=== PATIENT | male | born 1955 | race Caucasian/White ===

== ENCOUNTER → 2016-08-15 | Outpatient (CLI) | payer BC ==
[~2016-08-15] MED LIST: ASPIRIN; GLUCAPHAGE; NIACIN; OMEG10007; PLAVIX; TOPROL; ZOCOR; [UNRECOGNIZED DRUG - REMARK]
[2016-08-15 13:20] LABS: ALT/SGPT 46 U/L (12-78); AST/SGOT 26 U/L (15-37); BLOOD UREA NITROGEN 20 mg/dl (7-18); BUN/CREATININE RATIO 14.6 (10-20); CALCIUM 8.9 mg/dl (8.5-10.1); CARBON DIOXIDE 26 mmol/L (21-32); CHLORIDE 108 mmol/L (98-107); CHOLESTEROL 144 mg/dl (0-200); GLUCOSE 90 mg/dl (70-99); POTASSIUM 4.5 mmol/L (3.5-5.1); SODIUM 141 mmol/L (136-145)
[2016-08-15 13:23] LABS: CHOLESTEROL/HDL RATIO 3.8; HDL CHOLESTEROL 38 mg/dl; LDL CHOLESTEROL CALCULATED 58 mg/dl; TRIGLYCERIDES 240 mg/dl (0-150); VERY LOW DENSITY LIPOPROT CALC 48 mg/dl
[2016-08-15 13:31] LABS: ESTIMATED AVERAGE GLUCOSE 143 mg/dl; HA1C FLAG Normal (Normal)
== END | disposition home or self-care (01) ==
LOC: C.LABMFLN 08:25
PROVIDERS: ATTEND Family Medicine
DX: I10 Essential (primary) hypertension (principal); E78.00 Pure hypercholesterolemia, unspecified; E11.9 Type 2 diabetes mellitus without complications; I25.10 Atherosclerotic heart disease of native coronary artery without angina pectoris

== ENCOUNTER → 2017-08-25 | Day surgery (SDC) | payer OTHER ==
[2017-08-15 11:15] VITALS: Ht 179.1 cm; Wt 101.8 kg
[~2017-08-25] VITALS: Ht 179.1 cm; Wt 101.8 kg
[~2017-08-25] MED LIST changes: +ASPCH81X PO; -ASPIRIN; +ATOR-26 PO; +CANA1TAB3 PO; +DULA0.5I INJ; +FENO1TAB PO; -GLUCAPHAGE; +GLYB5TAB3 PO; +LIDOCAINE HCL 2% 2 ML VIAL (20MG/ML) ONE; +LISI40TA PO; +LORA10CA2 PO; +METO50TA16 PO; +MIDAZOLAM HCL 1 MG/ML 2ML VIAL ONE; -NIACIN; +NTRGSL/4 UT; -OMEG10007; +ONDANSETRON INJ 2 MG/ML 2 ML VIAL ONE; +PHENYLEPHRINE 100MCG/ML 5ML SYR ONE; -PLAVIX; +PROPOFOL IV EMULSION 10 MG/ML 20 ML VIAL IV ONE; +SILD1TAB39 PO; +SODIUM CHLORIDE 0.9% 500ML 500 ML IV ONE; +TADA5TAB11 PO; -TOPROL; +TRMO2580 TOP; +WARF5TAB90 PO; -ZOCOR; -[UNRECOGNIZED DRUG - REMARK]
[2017-08-25 14:11] VITALS: TEMP 36.9
--- NOTE | 2017-08-25 15:14 | Endo History and Physical ---
History & Physical Date of Service: Aug 25, 2017. Chief Complaint: Screening Referring Physician: Dr. Jurgen Villela History of Present Illness colon screening Past Surgical History Hx Cardiac Surgery: Yes (MULT. HEART CATHS (3 STENT PLACED)) Hx Internal Defibrillator: Yes Hx Pacemaker: Yes Hx Abdominal Surgery: No Hx of Implantable Prosthesis: No Hx Post-Op Nausea and Vomiting: No Hx Cancer Surgery: No Hx Thoracic Surgery: No Hx Orthopedic: Yes (RT/LEFT CTR) Hx Urinary Tract Surgery: No Family History None Social History Smoking Status: Never Smoker Hx Substance Use: No Hx Alcohol Use: Yes (OCCASIONALLY) Allergies Coded Allergies: No Known Allergies (Verified , 08/25/17) Current Medications Reported Home Medications Medications Dose Route/Sig Max Daily Dose Days Date Category Dose Instructions Coumadin (Warfarin Sodium) 5 Mg Tab 5 Mg PO DIRECTED 08/15/17 Reported TAKES 5MG MONDAY, MON, MONDAY AND SAT. TAKES 2.5MG ALL OTHER DAYS (3XWK) Trulicity (Dulaglutide) 1.5 Mg/0.5 Ml Inj 1 Dose INJ WK 08/15/17 Reported Nitrostat (Nitroglycerin) 0.4 Mg Tab 0.4 Mg UT PRN 08/15/17 Reported Lopressor (Metoprolol Tartrate) 50 Mg Tab 50 Mg PO BID 08/15/17 Reported Claritin (Loratadine) 10 Mg Cap 10 Mg PO QAM 08/15/17 Reported Zestril (Lisinopril) 40 Mg Tab 40 Mg PO QAM 08/15/17 Reported Invokana (Canagliflozin) 300 Mg Tab 1 Tab PO QAM 08/15/17 Reported Glucovance 5/500 Mg (Glyburide-Metformin) 1 Tab Tab 2 Tab PO BID 08/15/17 Reported Tricor (Fenofibrate) 160 Mg Tab 160 Mg PO QAM 08/15/17 Reported Lipitor (Atorvastatin Calcium) 80 Mg Tab 80 Mg PO HS 08/15/17 Reported Aspirin Chewable (Aspirin) 81 Mg Chew 81 Mg PO HS 08/15/17 Reported Vital Signs Weight (Kilograms): 101.82 Height (Feet): 5 Height (Inches): 10.5 Date Time Temp Pulse Resp B/P (MAP) Pulse Ox O2 Delivery O2 Flow Rate FiO2 08/25/17 14:11 36.9 81 20 169/86 (113) 98 Room Air Physical Exam General Appearance: WD/WN, no apparent distress Respiratory/Chest: Auscultation: breath sounds normal Cardiovascular: Heart Auscultation: RRR Abdomen: Bowel Sounds: normal Inspection & Palpation: soft, non-distended, no tenderness, guarding & rebound colon screening Assessment and Plan colon screening
--- NOTE | 2017-08-25 15:59 | Discharge Instructions ---
Endoscopy Patient Instructions Date / Procedure(s) Performed Aug 25, 2017. Colonoscopy Allergy Information Coded Allergies: No Known Allergies (Verified , 08/25/17) Discharge Date / Findings Aug 25, 2017. polyps Medication Instructions Stopped Medication(s): Patient did not take anything today. Restart Stopped Medication(s): Reported Home Medications Medications Dose Route/Sig Max Daily Dose Days Date Category Dose Instructions Coumadin (Warfarin Sodium) 5 Mg Tab 5 Mg PO DIRECTED 08/15/17 Reported TAKES 5MG MONDAY, MON, MONDAY AND SAT. TAKES 2.5MG ALL OTHER DAYS (3XWK) Trulicity (Dulaglutide) 1.5 Mg/0.5 Ml Inj 1 Dose INJ WK 08/15/17 Reported Nitrostat (Nitroglycerin) 0.4 Mg Tab 0.4 Mg UT PRN 08/15/17 Reported Lopressor (Metoprolol Tartrate) 50 Mg Tab 50 Mg PO BID 08/15/17 Reported Claritin (Loratadine) 10 Mg Cap 10 Mg PO QAM 08/15/17 Reported Zestril (Lisinopril) 40 Mg Tab 40 Mg PO QAM 08/15/17 Reported Invokana (Canagliflozin) 300 Mg Tab 1 Tab PO QAM 08/15/17 Reported Glucovance 5/500 Mg (Glyburide-Metformin) 1 Tab Tab 2 Tab PO BID 08/15/17 Reported Tricor (Fenofibrate) 160 Mg Tab 160 Mg PO QAM 08/15/17 Reported Lipitor (Atorvastatin Calcium) 80 Mg Tab 80 Mg PO HS 08/15/17 Reported Aspirin Chewable (Aspirin) 81 Mg Chew 81 Mg PO HS 08/15/17 Reported Start blood thinner tomorrow Reported Home Medications Medications Dose Route/Sig Max Daily Dose Days Date Category Dose Instructions Coumadin (Warfarin Sodium) 5 Mg Tab 5 Mg PO DIRECTED 08/15/17 Reported TAKES 5MG MONDAY, MON, MONDAY AND SAT. TAKES 2.5MG ALL OTHER DAYS (3XWK) Trulicity (Dulaglutide) 1.5 Mg/0.5 Ml Inj 1 Dose INJ WK 08/15/17 Reported Nitrostat (Nitroglycerin) 0.4 Mg Tab 0.4 Mg UT PRN 08/15/17 Reported Lopressor (Metoprolol Tartrate) 50 Mg Tab 50 Mg PO BID 08/15/17 Reported Claritin (Loratadine) 10 Mg Cap 10 Mg PO QAM 08/15/17 Reported Zestril (Lisinopril) 40 Mg Tab 40 Mg PO QAM 08/15/17 Reported Invokana (Canagliflozin) 300 Mg Tab 1 Tab PO QAM 08/15/17 Reported Glucovance 5/500 Mg (Glyburide-Metformin) 1 Tab Tab 2 Tab PO BID 08/15/17 Reported Tricor (Fenofibrate) 160 Mg Tab 160 Mg PO QAM 08/15/17 Reported Lipitor (Atorvastatin Calcium) 80 Mg Tab 80 Mg PO HS 08/15/17 Reported Aspirin Chewable (Aspirin) 81 Mg Chew 81 Mg PO HS 08/15/17 Reported Start blood thinner tomorrow Provider Instructions Activity Restrictions - No exercising or heavy lifting for 24 hours. - Do not drink alcohol the day of the procedure. - Do not drive a car or operate machinery until the day after the procedure. - Do not make any important decisions or sign important papers in 24 hours after the procedure. Following Day: - Return to full activity which may include returning to work/school. Diet Start your diet with liquids and light foods (jello, soup, juice, toast). Then eat your usual diet if not nauseated. Treatment For Common After Affects For mild abdominal pain, bloating, or excessive gas: - Rest - Eat lightly - Lie on right side Follow-Up Information Follow-up with Dr. Jurgen Villela as scheduled Anesthesia Information What You Should Know You have had a procedure that required some medicine to reduce anxiety and discomfort. This treatment is called moderate sedation. After receiving the treatment, you may be sleepy, but you will be able to breathe on your own. The effects of the treatment may last for several hours. Follow these instructions along with Activity/Diet recommendations noted above: * Do NOT do anything where dizziness or clumsiness would be dangerous. * Rest quietly at home today, then you can be up and about tomorrow. * Have a responsible person stay with you the rest of today. * You may have had an I.V. today. If so, you may take the dressing off later today. Recommendations Call your doctor if: * Trouble breathing * Continuous vomiting for more than 24 hours * Temperature above 101 degrees * Severe abdominal pain or bloating * Pain not relieved by pain medicine ordered * There is increased drainage or redness from any incision * A large amount of rectal bleeding greater than 2-3 tablespoons. (If you had a polyp/s removed or have hemorrhoids, a small amount of blood - from the rectum is to be expected.) * You have any unanswered questions or concerns. IN THE EVENT OF A SERIOUS EMERGENCY, GO TO THE NEAREST EMERGENCY ROOM Your discharge instructions were prepared by provider Vickey Orr. Patient Instructions Signature Page Francisco Benito Patient (or Guardian) Signature/Date: I have read and understand the instructions given to me by my caregivers. Caregiver/RN/Doctor Signature/Date: The above-named patient and/or guardian has received patient instructions on this date. + Original Patient Signature Page (only) stays with chart. Please make copy for patient.
--- NOTE | 2017-08-25 16:10 | GI REPORT ---
Procedure Date: 08/25/2017 2:57 PM Procedure: Colonoscopy Indications: Screening for colorectal malignant neoplasm Medicines: Propofol per Anesthesia Complications: No immediate complications. Estimated blood loss: Minimal. Estimated Blood Loss: Estimated blood loss was minimal. Procedure: Pre-Anesthesia Assessment: - Prior to the procedure, a History and Physical was performed, and patient medications and allergies were reviewed. The patient's tolerance of previous anesthesia was also reviewed. The risks and benefits of the procedure and the sedation options and risks were discussed with the patient. All questions were answered, and informed consent was obtained. Prior Anticoagulants: The patient has taken no previous anticoagulant or antiplatelet agents. ASA Grade Assessment: III - A patient with severe systemic disease. After reviewing the risks and benefits, the patient was deemed in satisfactory condition to undergo the procedure. After I obtained informed consent, the scope was passed under direct vision. Throughout the procedure, the patient's blood pressure, pulse, and oxygen saturations were monitored continuously. The scope was introduced through the anus and advanced to the terminal ileum, with identification of the appendiceal orifice and IC valve. The colonoscopy was performed without difficulty. The patient tolerated the procedure well. The quality of the bowel preparation was good. Findings: The perianal and digital rectal examinations were normal. Pertinent negatives include normal sphincter tone, no palpable rectal lesions and no anal lesion or abnormality was detected. A 3 mm polyp was found in the cecum. The polyp was sessile. The polyp was removed with a cold biopsy forceps. Resection and retrieval were complete. Estimated blood loss was minimal. Verification of patient identification for the specimen was done by the physician and agricultural research technician using the patient's name and medical record number. Two sessile polyps were found in the ascending colon. The polyps were 3 to 6 mm in size. These polyps were removed with a cold snare. Resection and retrieval were complete. Estimated blood loss was minimal. Verification of patient identification for the specimen was done by the physician and agricultural research technician using the patient's name and medical record number. A 4 mm polyp was found at 50 cm proximal to the anus. The polyp was sessile. The polyp was removed with a cold biopsy forceps. Resection and retrieval were complete. Estimated blood loss was minimal. Verification of patient identification for the specimen was done by the physician and agricultural research technician using the patient's name and medical record number. A 6 mm polyp was found at 60 cm proximal to the anus. The polyp was sessile. The polyp was removed with a cold snare. Resection and retrieval were complete. Estimated blood loss was minimal. Verification of patient identification for the specimen was done by the physician and agricultural research technician using the patient's name and medical record number. Estimated blood loss was minimal. Verification of patient identification for the specimen was done by the physician and agricultural research technician using the patient's name and medical record number. Two sessile polyps were found at 30 cm proximal to the anus. The polyps were 4 to 6 mm in size. These polyps were removed with a cold snare. Resection and retrieval were complete. Estimated blood loss was minimal. Verification of patient identification for the specimen was done by the physician and agricultural research technician using the patient's name and medical record number. The exam was otherwise without abnormality. The terminal ileum appeared normal. The retroflexed view of the distal rectum and anal verge was normal and showed no anal or rectal abnormalities. Impression: - One 3 mm polyp in the cecum, removed with a cold biopsy forceps. Resected and retrieved. - Two 3 to 6 mm polyps in the ascending colon, removed with a cold snare. Resected and retrieved. - One 4 mm polyp at 50 cm proximal to the anus, removed with a cold biopsy forceps. Resected and retrieved. - One 6 mm polyp at 60 cm proximal to the anus, removed with a cold snare. Resected and retrieved. - Two 4 to 6 mm polyps at 30 cm proximal to the anus, removed with a cold snare. Resected and retrieved. - The examination was otherwise normal. - The examined portion of the ileum was normal. - The distal rectum and anal verge are normal on retroflexion view. Recommendation: - Discharge patient to home (ambulatory). - Resume regular diet. - Continue present medications. - Await pathology results. - Repeat colonoscopy for surveillance based on pathology results. - Return to referring physician as previously scheduled. MD Vickey Kennedy MD 08/25/2017 4:09:45 PM This report has been signed electronically. Note Initiated On: 08/25/2017 2:57 PM I attest to the content of the Intraoperative Record and orders documented therein, exceptions below
[2017-08-25 16:35] VITALS: BP 135/80; PULSE 66; O2SAT 99
--- NOTE | 2017-08-25 21:17 | Anesthesiology Progress Note ---
Anesthesia Post Op Note Date & Time Aug 25, 2017 at 21:17 Vital Signs Pain Intensity: 0 Vital Signs Past 12 Hours Date Time Temp Pulse Resp B/P (MAP) Pulse Ox O2 Delivery O2 Flow Rate FiO2 08/25/17 16:35 66 20 135/80 (98) 99 Room Air 08/25/17 16:20 69 20 131/75 (93) 98 Room Air 08/25/17 16:05 72 20 100/51 (67) 97 Room Air 08/25/17 14:11 36.9 81 20 169/86 (113) 98 Room Air Notes Mental Status: alert / awake / arousable, participated in evaluation Pt Amnestic to Procedure: Yes Nausea / Vomiting: adequately controlled Pain: adequately controlled Airway Patency, RR, SpO2: stable & adequate BP & HR: stable & adequate Hydration State: stable & adequate Anesthetic Complications: no major complications apparent
== END | disposition home or self-care (01) ==
LOC: C.GI 13:32
PROVIDERS: ATTEND Internal Medicine Gastroenterology
DX: Z12.11 Encounter for screening for malignant neoplasm of colon (principal); D12.0 Benign neoplasm of cecum; D12.2 Benign neoplasm of ascending colon; K62.0 Anal polyp; I10 Essential (primary) hypertension; M19.90 Unspecified osteoarthritis, unspecified site; E11.9 Type 2 diabetes mellitus without complications; Z79.01 Long term (current) use of anticoagulants; Z79.84 Long term (current) use of oral hypoglycemic drugs; Z79.82 Long term (current) use of aspirin; I25.10 Atherosclerotic heart disease of native coronary artery without angina pectoris; Z95.0 Presence of cardiac pacemaker

== ENCOUNTER → 2018-02-06 | Outpatient (CLI) | payer OTHER ==
[~2018-02-06] MED LIST changes: -LIDOCAINE HCL 2% 2 ML VIAL (20MG/ML) ONE; -MIDAZOLAM HCL 1 MG/ML 2ML VIAL ONE; -ONDANSETRON INJ 2 MG/ML 2 ML VIAL ONE; -PHENYLEPHRINE 100MCG/ML 5ML SYR ONE; -PROPOFOL IV EMULSION 10 MG/ML 20 ML VIAL IV ONE; -SILD1TAB39 PO; -SODIUM CHLORIDE 0.9% 500ML 500 ML IV ONE; -TADA5TAB11 PO; -TRMO2580 TOP
== END | disposition home or self-care (01) ==
LOC: C.LABMFLN 13:17
PROVIDERS: ATTEND Family Medicine
DX: J02.9 Acute pharyngitis, unspecified (principal)